=== PATIENT | male | born 1955 | race Caucasian/White ===

== ENCOUNTER 2018-07-22 12:26 | Emergency (ER) | payer BC ==
--- OUTSIDE RECORDS SUMMARY | 2018-07-22 12:30 | XMS REPORT | Clinical Summary ---
:1955 Author Organization [facility] Address [address] [place] [address] Care Team Providers Name Role Phone Jake Schilling MD Primary Care Provider Allergies No Known Allergies Current Medications Prescription Sig. Disp. Refills Start Date End Date Status tadalafil (CIALIS) Take 10 mg by Active 10 MG tablet mouth daily as needed for erectile dysfunction. ascorbic acid, Take 500 mg by Active vitamin C, mouth daily. (VITAMIN C) 500 mg capsule, extended release CR capsule ferrous sulfate Take 325 mg by Active 325 (65 FE) MG mouth daily with tablet breakfast. sodium,potassium,m Take 1 Bottle by 1 Bottle 0 08/17/2017 ag sulfates mouth once for 1 7 (SUPREP BOWEL PREP dose. KIT) 17.5-3.13-1.6 gram recon soln magnesium citrate Take 1 Bottle 296 mL 0 08/17/2017 solution (296 mL total) 7 by mouth once for 1 dose. sodium,potassium,m Take 1 Bottle by 1 Bottle 0 09/12/2017 ag sulfates mouth once for 1 7 (SUPREP BOWEL PREP dose. KIT) 17.5-3.13-1.6 gram recon soln magnesium citrate Take 1 Bottle 296 mL 0 09/12/2017 solution (296 mL total) 7 by mouth once for 1 dose. docusate sodium Take 1 capsule 60 capsule 0 03/11/2018 (COLACE) 100 MG (100 mg total) 8 capsule by mouth 2 (two) times a day for 30 days. ciprofloxacin Begin taking 10 tablet 0 03/17/2018 (CIPRO) 500 MG twice daily, 1 8 tablet day prior to follow-up appointment with your Urologist traMADol (ULTRAM) Take 1 tablet 21 tablet 0 03/11/2018 Discontinued 50 mg tablet (50 mg total) by 8 mouth every 6 (six) hours as needed for moderate pain for up to 21 doses. acetaminophen-code Take 1 tablet by 20 tablet 0 06/24/2018 ine (TYLENOL WITH mouth every 6 8 CODEINE #3) 300-30 (six) hours as mg per tablet needed for moderate pain for up to 20 doses. docusate sodium Take 1 capsule 30 capsule 0 06/24/2018 (COLACE) 100 MG (100 mg total) 8 capsule by mouth 2 (two) times a day for 30 doses. sulfamethoxazole-t Take 1 tablet by 10 tablet 0 06/24/2018 rimethoprim mouth 2 (two) 8 (BACTRIM DS) times a day for 800-160 mg per 5 days. tablet Active Problems Problem Noted Date Hydronephrosis 06/23/2018 Prostate cancer (HCC) 12/09/2017 Encounters Date Type Specialty Care Team Description 07/20/2018 Telephone Urology Isaías Cao MD 06/23/2018 Hospital Encounter General Internal [place], Hydronephrosis, - Medicine Bao Harris MD unspecified 06/24/2018 hydronephrosis type 06/23/2018 Hospital Encounter Radiology Ko HebertphBao pierce MD unspecified hydronephrosis type 06/23/2018 Ancillary Orders Radiology [place] HydrozacharyphBao pierce MD unspecified hydronephrosis type 06/23/2018 Anesthesia Event Radiology Oralia Maza MD 06/16/2018 Transcribe Orders Radiology Ko HebertphrosisBao MD unspecified hydronephrosis type (Primary Dx) 06/15/2018 Hospital Encounter Radiology [place], Right lower quadrant steve Willingham MD 06/15/2018 Ancillary Orders General Surgery Jaclyn, Right lower quadrant steve Willingham MD 06/12/2018 Orders Only General Surgery Mariola Right lower quadrant Radha Jacklyn, pain (Primary Dx) PA 06/08/2018 Office Visit General Surgery [place], Right lower quadrant Bernard Ring abdominal pain (Primary Dx) 03/16/2018 Hospital Encounter Radiology [place], Cancer of prostate Bao Harris MD 03/16/2018 Hospital Encounter Radiology [place], Cancer of prostate Bao Harris MD 03/16/2018 Lab Lab [place], Hypouricemia Bao Harris MD (Primary Dx) 03/16/2018 Lab Lab Bao Hebert MD 03/16/2018 Transcribe Orders Access [place], Cancer of prostate Bao Harris MD (Primary Dx) 03/07/2018 Hospital Encounter General Internal [place], Prostate cancer - Medicine Bao Harris MD 03/13/2018 03/07/2018 Anesthesia Event Urology Audra Ayala CRNA 03/07/2018 Procedure Pass Urology 03/07/2018 Surgery Urology [place], ROBOTIC ASSISTED Bao Harris MD LAPARSCOPIC PROSTATECTOMY, BILATERAL PELVIC LYMPH NODE DISSECTION, BILATERAL URETERAL STENT INSERTION 02/28/2018 Pre-Admit Testing Pre-Admission Testing [place], Preop testing Appointment Bao Harris MD (Primary Dx) 02/06/2018 Hospital Encounter Radiology Bao Hebert MD 02/06/2018 Hospital Encounter Radiology [place], Prostate cancer Bao Harris MD 02/06/2018 Hospital Encounter Radiology [place], Prostate cancer Bao Harris MD 01/16/2018 Procedure Pass Radiology 01/16/2018 Transcribe Orders Access [place], Prostate cancer Bao Harris MD (Primary Dx) 12/27/2017 Telephone Urology Isaías Cao MD 12/22/2017 Telephone Urology Kerry Rehman 12/20/2017 Office Visit Urology Isaías Cao Malignant neoplasm MD Sanjuanita of prostate (Primary Dx) 12/09/2017 Telephone Urology Kerry Rehman 09/14/2017 Documentation Gastroenterology Walter Herring MD 09/13/2017 Lab Lab Walter Herring MD 09/12/2017 Orders Only Gastroenterology Dee Penaloza MA 09/12/2017 Telephone Gastroenterology Walter Herring MD 09/12/2017 Telephone Gastroenterology Walter Herring MD 08/17/2017 Orders Only Gastroenterology Dee Penaloza MA after 07/21/2017 Family History Medical History Relation Name Comments Bladder Cancer Father Heart disease Father Diabetes Maternal Grandfather Relation Name Status Comments Father Maternal Grandfather Social History Tobacco Use Types Packs/Day Years Used Date Never Smoker Smokeless Tobacco: Never Used Alcohol Use Drinks/Week oz/Week Comments Yes Sex Assigned at Date Recorded Not on file Last Filed Vital Signs Vital Sign Reading Time Taken Blood Pressure 127/78 06/24/2018 8:05 AM CDT Pulse 52 06/24/2018 8:05 AM CDT Temperature 36.4 C (97.6 F) 06/24/2018 8:05 AM CDT Respiratory Rate 19 06/24/2018 8:05 AM CDT Oxygen Saturation 97% 06/24/2018 8:05 AM CDT Inhaled Oxygen Concentration - - Weight 63.5 kg (140 lb) 06/23/2018 1:18 PM CDT Height 182.9 cm (6') 06/23/2018 1:18 PM CDT Body Mass Index 18.99 06/23/2018 1:18 PM CDT Plan of Treatment Date Type Specialty Care Team Description 08/04/2018 Office Visit Urology Daniel Sotelo MD [address] [facility] [address] [place] [address] Health Maintenance Due Date Last Done Comments SHINGRIX VACCINE (#1) 2007 ZOSTER VACCINE 2017 INFLUENZA VACCINE 05/17/2018 COLON CANCER SCREENING 08/17/2027 08/17/2017 Implants Implanted Type Area Application Tester Device Expiration Model / Identifier Date Serial / Lot Tip Flxibl Selnt Fibrin Clog-Resistant 45cm Evicel - [id number] Surgical N/A : ETHICON US-EH 10/16/2020 [id number] / Implanted: 03/07/2018 (Quantity not on file) Implants; N/A / Expanders; [id number] Extenders; Surgical Wires Kit Selnt Fibrin Humn Hmsts Surgy 5ml Evicel - [id number] Surgical N/A: ETHICON US-EH 07/16/2019 [id number] / Implanted: Qty: 1 on 03/07/2018 by Bao Hebert MD Implants; N/A / Expanders; Extenders; Surgical Wires Clip Ligtng Hem-O-Farhan Endoscpc Aplr Ply Lg - [id number] Surgical N/A: WECK CLOSURE 10/25/2022 [id number] / Implanted: Qty: 3 on 03/07/2018 by Bao Hebert MD Implants; N/A SYSTEMS / Expanders; Extenders; Surgical Wires Matrix Surgcl Matristem 7x10cm Psm Strl - [id number] Surgical N/A: [employer] 11/16/2019 [id number] / Implanted: Qty: 1 on 03/07/2018 by Bao Hebert MD Implants; N/A / Expanders; Extenders; Surgical Wires Clip Ligtng Hem-O-Farhan Endoscpc Aplr [facility] Lg - [id number] Surgical N/A: WECK CLOSURE 10/25/2022 [id number] / Implanted: Qty: 1 on 03/07/2018 by Bao Hebert MD Implants; N/A SYSTEMS / Expanders; Extenders; Surgical Wires Needle Yueh Centsis 19ga Str 5fr 7cm Cath Strl - [id number] Surgical N/A: ARIA [id number] / Implanted: 06/23/2018 (Quantity not on file) Implants; N/A INTERVENTIONAL / Expanders; RADIOLOGY Extenders; Surgical Wires Stent Uretl S-Flx Kwrt Rtr-Inj Mltlen 6fr 22-32cm - [id number] Urological N/A : CustomMade UROLOGICAL 06/09/2020 [id number] / Implanted: 03/07/2018 (Quantity not on file) Implants or N/A / Sets [id number] Stent Uretl S-Flx Kwrt Rtr-Inj Mltlen 6fr 22-32cm - [id number] Urological N/A : CustomMade UROLOGICAL 06/09/2020 [id number] / Implanted: 03/07/2018 (Quantity not on file) Implants or N/A / Sets [id number] Procedures Procedure Name Priority Date/Time Associated Diagnosis Comments CBC HEMOGRAM STAT 06/24/2018 7:31 Results for this AM CDT procedure are in the results section. ZZESTIMATED GFR STAT 06/24/2018 6:13 Results for this AM CDT procedure are in the results section. BASIC METABOLIC STAT 06/24/2018 6:13 Results for this PANEL AM CDT procedure are in the results section. IR VISCERAL DRAIN Routine 06/23/2018 4:11 Hydronephrosis, Results for this PM CDT unspecified procedure are in hydronephrosis type the results section. IR RIGHT NEPHROSTOMY Routine 06/23/2018 4:11 Hydronephrosis, Results for this INITIAL PLACEMENT PM CDT unspecified procedure are in hydronephrosis type the results section. CREATININE LEVEL, Routine 06/23/2018 2:58 Results for this MISC FLUID PM CDT procedure are in the results section. CT UROGRAM Routine 06/23/2018 11:34 Hydronephrosis, Results for this AM CDT unspecified procedure are in hydronephrosis type the results section. CT ABDOMEN W WO Routine 06/15/2018 3:14 Right lower quadrant Results for this CONTRAST PELVIS W WO PM CDT pain procedure are in CONTRAST the results section. ESTIMATED GFR Routine 06/15/2018 2:40 Results for this PM CDT procedure are in the results section. POC CREATININE Routine 06/15/2018 2:40 Results for this PM CDT procedure are in the results section. CT ABDOMEN PELVIS W Routine 03/16/2018 3:34 Cancer of prostate Results for this CONTRAST PM CDT procedure are in the results section. CREATININE LEVEL, STAT 03/16/2018 11:47 Hypouricemia Results for this MISC FLUID AM CDT procedure are in the results section. CBC HEMOGRAM Routine 03/13/2018 5:00 Results for this AM CDT procedure are in the results section. ZZESTIMATED GFR Routine 03/13/2018 4:00 Results for this AM CDT procedure are in the results section. BASIC METABOLIC Routine 03/13/2018 4:00 Results for this PANEL AM CDT procedure are in the results section. ZZESTIMATED GFR Routine 03/12/2018 4:21 Results for this AM CDT procedure are in the results section. CBC HEMOGRAM Routine 03/12/2018 4:21 Results for this AM CDT procedure are in the results section. BASIC METABOLIC Routine 03/12/2018 4:21 Results for this PANEL AM CDT procedure are in the results section. CREATININE LEVEL, Routine 03/11/2018 6:30 Results for this MISC FLUID PM CDT procedure are in the results section. CBC HEMOGRAM Routine 03/11/2018 4:30 Results for this AM CDT procedure are in the results section. ZZESTIMATED GFR Routine 03/11/2018 4:00 Results for this AM CDT procedure are in the results section. BASIC METABOLIC Routine 03/11/2018 4:00 Results for this PANEL AM CDT procedure are in the results section. CT ABDOMEN PELVIS W STAT 03/10/2018 11:22 Results for this WO CONTRAST AM CDT procedure are in the results section. CBC HEMOGRAM Routine 03/10/2018 4:15 Results for this AM CDT procedure are in the results section. ZZESTIMATED GFR Routine 03/10/2018 4:00 Results for this AM CDT procedure are in the results section. BASIC METABOLIC Routine 03/10/2018 4:00 Results for this PANEL AM CDT procedure are in the results section. ZZESTIMATED GFR Routine 03/09/2018 12:00 Results for this PM CDT procedure are in the results section. BASIC METABOLIC Routine 03/09/2018 12:00 Results for this PANEL PM CDT procedure are in the results section. CREATININE LEVEL, STAT 03/09/2018 10:45 Results for this MISC FLUID AM CDT procedure are in the results section. XR ABDOMEN 1 VW STAT 03/09/2018 8:53 Results for this AM CDT procedure are in the results section. CBC HEMOGRAM Routine 03/09/2018 4:15 Results for this AM CDT procedure are in the results section. ZZESTIMATED GFR Routine 03/09/2018 4:00 Results for this AM CDT procedure are in the results section. BASIC METABOLIC Routine 03/09/2018 4:00 Results for this PANEL AM CDT procedure are in the results section. ZZESTIMATED GFR Routine 03/08/2018 4:00 Results for this AM CDT procedure are in the results section. BASIC METABOLIC Routine 03/08/2018 4:00 Results for this PANEL AM CDT procedure are in the results section. HEMOGLOBIN & Routine 03/08/2018 4:00 Results for this HEMATOCRIT AM CDT procedure are in the results section. SURGICAL PATHOLOGY Routine 03/07/2018 1:59 Results for this REQUEST PM CDT procedure are in the results section. SURGICAL PATHOLOGY Routine 03/07/2018 1:59 Results for this REQUEST PM CDT procedure are in the results section. ZZESTIMATED GFR Routine 03/07/2018 11:50 Results for this AM CDT procedure are in the results section. BASIC METABOLIC Routine 03/07/2018 11:50 Results for this PANEL AM CDT procedure are in the results section. HC COMPLETE BLD Routine 03/07/2018 11:50 Results for this COUNT W/AUTO DIFF AM CDT procedure are in the results section. [place] AN ELECTIVE MASK Routine 03/07/2018 8:26 AIRWAY AM CDT Procedure Note - Audra Ayala CRNA - 03/07/2018 8:26 AM CDT Airway Date/Time: 03/07/2018 7:32 AM Performed by: AUDRA AYALA Authorized by: FOUZIA KITCHEN Location: OR Urgency: Elective Difficult Airway: No Resident/COLLECTIONS SPECIALIST/AA: AUDRA AYALA Preoxygenated with 100% O2: Yes C-spine Precautions Maintained Throughout: Yes Mask Ventilation: Easy mask Final Airway Type: Mask Number of Attempts at Approach: 1 AUTRAUMATIC LUBE & TAPE BOTH EYES OGT PROSTATECTOMY, LAPAROSCOPIC, 03/07/2018 7:30 AM CDT Prostate cancer ROBOT-ASSISTED Special Needs DAVINCI, AIRSEAL ECG PRE/POST OP Routine 02/28/2018 1:32 PM Preop testing Results for this CDT procedure are in the results section. URINE CULTURE Routine 02/28/2018 1:25 PM Results for this CDT procedure are in the results section. ZZESTIMATED GFR Routine 02/28/2018 1:20 PM Results for this CDT procedure are in the results section. BASIC METABOLIC PANEL Routine 02/28/2018 1:20 PM Preop testing Results for this CDT procedure are in the results section. CBC HEMOGRAM Routine 02/28/2018 1:20 PM Preop testing Results for this CDT procedure are in the results section. URINALYSIS SCREEN AND Routine 02/28/2018 1:20 PM Preop testing Results for this MICROSCOPY, WITH CDT procedure are in REFLEX TO CULTURE the results section. TYPE AND SCREEN Routine 02/28/2018 1:20 PM Preop testing Results for this CDT procedure are in the results section. NM BONE SCAN WHOLE Routine 02/06/2018 12:11 PM Prostate cancer Results for this BODY CDT procedure are in the results section. MRI PROSTATE WWO Routine 02/06/2018 10:56 AM Prostate cancer Results for this CONTRAST CDT procedure are in the results section. ESTIMATED GFR Routine 02/06/2018 9:48 AM Results for this CDT procedure are in the results section. POC CREATININE Routine 02/06/2018 9:48 AM Results for this CDT procedure are in the results section. SURGICAL PATHOLOGY Routine 09/13/2017 10:22 AM Results for this REQUEST HOME BASED ASSISTANT procedure are in the results section. after 07/21/2017 Results CBC hemogram (06/24/2018 7:31 AM)Only the most recent of7 resultswithin the time period is included. WBC 8.10 4.50 - 11.00 k/uL [facility] DEPARTMENT OF PATHOLOGY AND GENOMIC MEDICINE RBC 4.01 (L) 4.40 - 6.00 m/uL [facility] DEPARTMENT OF PATHOLOGY AND GENOMIC MEDICINE HGB 11.4 (L) 14.0 - 18.0 g/dL [facility] DEPARTMENT OF PATHOLOGY AND GENOMIC MEDICINE HCT 34.8 (L) 41.0 - 51.0 % [facility] DEPARTMENT OF PATHOLOGY AND GENOMIC MEDICINE MCV 86.8 82.0 - 100.[address] [facility] DEPARTMENT OF PATHOLOGY AND GENOMIC MEDICINE MCH 28.4 27.0 - 34.[address] [facility] DEPARTMENT OF PATHOLOGY AND GENOMIC MEDICINE MCHC 32.8 31.0 - 37.0 g/dL [facility] DEPARTMENT OF PATHOLOGY AND GENOMIC MEDICINE RDW - SD 45.7 37.0 - 55.[address] [facility] DEPARTMENT OF PATHOLOGY AND GENOMIC MEDICINE MPV 10.0 8.8 - 13.[address] [facility] DEPARTMENT OF PATHOLOGY AND GENOMIC MEDICINE Platelet count 237 150 - 400 k/uL [facility] DEPARTMENT OF PATHOLOGY AND GENOMIC MEDICINE Nucleated RBC 0.00 /[address] [facility] DEPARTMENT OF PATHOLOGY AND GENOMIC MEDICINE Specimen Blood Performing Organization Address City/State/Zipcode Phone Number [facility] DEPARTMENT OF PATHOLOGY AND [address] [place] [address] [facility] Estimated GFR (06/24/2018 6:13 AM)Only the most recent of10 resultswithin the time period is included. GFR Non Af Amer 76 mL/min/1.[address] [facility] DEPARTMENT OF PATHOLOGY AND GENOMIC MEDICINE GFR Af Amer >90 mL/min/1.[address] [facility] DEPARTMENT OF Comment: PATHOLOGY AND GENOMIC Chronic kidney disease: <60 mL/min/1.73m2 MEDICINE Kidney failure: <15 mL/min/1.73m2 The estimated GFR is calculated from the IDMS-traceable Modification of Diet in Renal Disease Equation. The accuracy of the calculation is poor when the creatinine is normal. Calculated values >90 mL/min/1.73m2 are not reported. This equation has not been validated in children (<18 years), women, the elderly (>70 years), or ethnic groups other than Caucasians and Americans. Specimen Plasma specimen Performing Organization Address City/[facility] Phone Number [facility] DEPARTMENT OF PATHOLOGY AND [address] [place] [phone] [facility] Basic metabolic panel (06/24/2018 6:13 AM)Only the most recent of10 resultswithin the time period is included. Sodium 143 135 - 148 mEq/L [facility] DEPARTMENT OF PATHOLOGY AND GENOMIC MEDICINE Potassium 4.2 3.5 - 5.0 mEq/L [facility] DEPARTMENT OF PATHOLOGY AND GENOMIC MEDICINE Chloride 106 98 - 112 mEq/L [facility] DEPARTMENT OF PATHOLOGY AND GENOMIC MEDICINE CO2 25 24 - 31 mEq/L [facility] DEPARTMENT OF PATHOLOGY AND GENOMIC MEDICINE Anion gap 12@ANIO 7 - 15 mEq/L [facility] DEPARTMENT OF PATHOLOGY AND GENOMIC MEDICINE BUN 14 8 - 23 mg/dL [facility] DEPARTMENT OF PATHOLOGY AND GENOMIC MEDICINE Creatinine 1.0 0.7 - 1.2 mg/dL [facility] DEPARTMENT OF PATHOLOGY AND GENOMIC MEDICINE Glucose 93 65 - 99 mg/dL [facility] DEPARTMENT OF PATHOLOGY AND GENOMIC MEDICINE Calcium 8.6 (L) 8.8 - 10.2 mg/dL [facility] DEPARTMENT OF PATHOLOGY AND GENOMIC MEDICINE Specimen Plasma specimen Performing Organization Address City/[facility] Phone Number [facility] DEPARTMENT OF PATHOLOGY AND [address] [place] [phone] [facility] IR Nephrostomy Insertion Right (06/23/2018 4:11 PM) Narrative Performed At Performing Radiologist NAJMA Umanzor MD Assistants None Anesthesia/Sedation: Level of anesthesia: General Anesthesia Medications used: per anesthesia and 1% lidocaine Anesthesia administration: Anesthesiologist/COLLECTIONS SPECIALIST. 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 Prophylactic antibiotics: None Preparation: The right lower quadrant of the abdomen and right flank were prepared and draped using all elements of maximal sterile barrier technique including sterile gloves, sterile gown, catheter, mask, large sterile sheet, sterile ultrasound probe cover, hand hygiene and cutaneous antisepsis using chlorhexidine. A limited preprocedure ultrasound of the right lower quadrant of the abdomen was obtained. Under ultrasound guidance, a 5 German Yueh catheter was advanced into a loculated fluid collection within the right lower quadrant of the abdomen. Clear yellow fluid was aspirated immediately from the fluid collection. Contrast was injected confirming positioning within the collection. The Yueh catheter was then removed over a 0.035 inch Amplatz wire. The subcutaneous tissues were then appropriately dilated to accommodate an 8 German pigtail drainage catheter. The catheter was secured to the subcutaneous tissues and then placed to gravity drainage and samples of fluid were sent for creatinine. The patient was then placed in the prone position, and a limited preprocedure ultrasound of the right kidney was performed. The superior pole collecting system was noted to be dilated. Under ultrasound guidance, the superior pole collecting system was accessed with a 22-gauge Chiba needle. The needle was then exchanged over 0.018 inch wire for a 3 German sheath which was then injected with contrast confirming positioning within the superior pole collecting system. A 6 German Zaira catheter was then advanced over the 0.018 inch wire, and the distal ureter was accessed with a 5 German Kumpe catheter and 0.035 inch Glidewire. A focused anterior nephrostogram was then performed and an attempt for made to cross the defect within the distal portion of the right ureter draining the superior pole collecting system, however, this was unsuccessful. The subcutaneous kidneys tissues were then appropriately dilated over 0.035 inch J-wire to accommodate an 8 German Parnell-Whittaker nephrostomy tube which was positioned within the superior pole collecting system. The catheter was then secured subcutaneous tissues and placed to gravity drainage. The patient tolerated the procedure well. Radiation Dose: 11 mGy Complications None Specimens Removed None Estimated Blood Loss Less than 2 mL Blood/Blood Products Administered None Findings: 1.Initial ultrasound of the right lower quadrant of the abdomen demonstrates a complex fluid collection with thin internal septations. This was accessed with a UA catheter. 2.Injection of contrast within this collection demonstrates no evidence of a contrast opacification of the distal right ureter or bladder. 3.Final spot radiograph of the pelvis demonstrates positioning of the 8 German pigtail drainage catheter to overlie the right-sided the pelvis. 4.Initial ultrasound of the right kidney demonstrates dilatation of the superior pole collecting system. The inferior pole collecting system is not dilated. 5.Multiple spot radiographs obtained during access of the right kidney demonstrate a 22-gauge Chiba needle coursing between the 11th and 12th ribs into a dilated right superior pole collecting system. The lower pole collecting system is visible, and contains excreted contrast from a recent CT. The collecting system appears nondilated. 6.Antegrade nephrostogram performed through the superior pole collecting system within the right kidney demonstrates moderate hydronephrosis. The right ureter is patent, and terminates over the inferior margin of the pelvis. Contrast spills into the peritoneal cavity. No definite connection is seen between the distal right ureter and the bladder. 7.Final spot radiograph demonstrates positioning of a Parnell-Whittaker pigtail nephrostomy tube to be within a calyx within the superior pole collecting system of the right kidney. Again, the lower pole collecting system of the right kidney is opacified with excreted contrast and appears nondilated. Impression: 1.Duplicated right-sided collecting system with discontinuity of the ureter draining the superior pole moiety along the inferior margin of the pelvis. Contrast is noted to spill directly into the peritoneal cavity correlating with findings on recent CT. An 8 German Parnell-Whittaker pigtail nephrostomy tube was placed within the superior pole collecting system. 2.Successful placement of an 8 German right lower quadrant abdominal drain within a complex fluid collection likely representing a urinoma. [facility]-[id number] Procedure Note [facility], Radiology Results Incoming - 06/23/2018 5:39 PM CDT Performing Radiologist Sharan Umanzor MD Assistants None Anesthesia/Sedation: Level of anesthesia: General Anesthesia Medications used: per anesthesia and 1% lidocaine Anesthesia administration: Anesthesiologist/COLLECTIONS SPECIALIST. 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 Prophylactic antibiotics: None Preparation: The right lower quadrant of the abdomen and right flank were prepared and draped using all elements of maximal sterile barrier technique including sterile gloves, sterile gown, catheter, mask, large sterile sheet, sterile ultrasound probe cover, hand hygiene and cutaneous antisepsis using chlorhexidine. A limited preprocedure ultrasound of the right lower quadrant of the abdomen was obtained. Under ultrasound guidance, a 5 German Yueh catheter was advanced into a loculated fluid collection within the right lower quadrant of the abdomen. Clear yellow fluid was aspirated immediately from the fluid collection. Contrast was injected confirming positioning within the collection. The Yueh catheter was then removed over a 0.035 inch Amplatz wire. The subcutaneous tissues were then appropriately dilated to accommodate an 8 German pigtail drainage catheter. The catheter was secured to the subcutaneous tissues and then placed to gravity drainage and samples of fluid were sent for creatinine. The patient was then placed in the prone position, and a limited preprocedure ultrasound of the right kidney was performed. The superior pole collecting system was noted to be dilated. Under ultrasound guidance, the superior pole collecting system was accessed with a 22-gauge Chiba needle. The needle was then exchanged over 0.018 inch wire for a 3 German sheath which was then injected with contrast confirming positioning within the superior pole collecting system. A 6 German Zaira catheter was then advanced over the 0.018 inch wire, and the distal ureter was accessed with a 5 German Kumpe catheter and 0.035 inch Glidewire. A focused anterior nephrostogram was then performed and an attempt for made to cross the defect within the distal portion of the right ureter draining the superior pole collecting system, however, this was unsuccessful. The subcutaneous kidneys tissues were then appropriately dilated over 0.035 inch J-wire to accommodate an 8 German Parnell-Whittaker nephrostomy tube which was positioned within the superior pole collecting system. The catheter was then secured subcutaneous tissues and placed to gravity drainage. The patient tolerated the procedure well. Radiation Dose: 11 mGy Complications None Specimens Removed None Estimated Blood Loss Less than 2 mL Blood/Blood Products Administered None Findings: 1. Initial ultrasound of the right lower quadrant of the abdomen demonstrates a complex fluid collection with thin internal septations. This was accessed with a UA catheter. 2. Injection of contrast within this collection demonstrates no evidence of a contrast opacification of the distal right ureter or bladder. 3. Final spot radiograph of the pelvis demonstrates positioning of the 8 German pigtail drainage catheter to overlie the right-sided the pelvis. 4. Initial ultrasound of the right kidney demonstrates dilatation of the superior pole collecting system. The inferior pole collecting system is not dilated. 5. Multiple spot radiographs obtained during access of the right kidney demonstrate a 22-gauge Chiba needle coursing between the 11th and 12th ribs into a dilated right superior pole collecting system. The lower pole collecting system is visible, and contains excreted contrast from a recent CT. The collecting system appears nondilated. 6. Antegrade nephrostogram performed through the superior pole collecting system within the right kidney demonstrates moderate hydronephrosis. The right ureter is patent, and terminates over the inferior margin of the pelvis. Contrast spills into the peritoneal cavity. No definite connection is seen between the distal right ureter and the bladder. 7. Final spot radiograph demonstrates positioning of a Parnell-Whittaker pigtail nephrostomy tube to be within a calyx within the superior pole collecting system of the right kidney. Again, the lower pole collecting system of the right kidney is opacified with excreted contrast and appears nondilated. Impression: 1. Duplicated right-sided collecting system with discontinuity of the ureter draining the superior pole moiety along the inferior margin of the pelvis. Contrast is noted to spill directly into the peritoneal cavity correlating with findings on recent CT. An 8 German Parnell-Whittaker pigtail nephrostomy tube was placed within the superior pole collecting system. 2. Successful placement of an 8 German right lower quadrant abdominal drain within a complex fluid collection likely representing a urinoma. [id number] Performing Organization Address City/State/Zipcode Phone Number [facility] [address] [place] [address] IR Visceral Drain (06/23/2018 4:11 PM) Narrative Performed At Performing Radiologist [facility] Umanzor MD Assistants None Anesthesia/Sedation: Level of anesthesia: General Anesthesia Medications used: per anesthesia and 1% lidocaine Anesthesia administration: Anesthesiologist/COLLECTIONS SPECIALIST. 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 Prophylactic antibiotics: None Preparation: The right lower quadrant of the abdomen and right flank were prepared and draped using all elements of maximal sterile barrier technique including sterile gloves, sterile gown, catheter, mask, large sterile sheet, sterile ultrasound probe cover, hand hygiene and cutaneous antisepsis using chlorhexidine. A limited preprocedure ultrasound of the right lower quadrant of the abdomen was obtained. Under ultrasound guidance, a 5 German Yueh catheter was advanced into a loculated fluid collection within the right lower quadrant of the abdomen. Clear yellow fluid was aspirated immediately from the fluid collection. Contrast was injected confirming positioning within the collection. The Yueh catheter was then removed over a 0.035 inch Amplatz wire. The subcutaneous tissues were then appropriately dilated to accommodate an 8 German pigtail drainage catheter. The catheter was secured to the subcutaneous tissues and then placed to gravity drainage and samples of fluid were sent for creatinine. The patient was then placed in the prone position, and a limited preprocedure ultrasound of the right kidney was performed. The superior pole collecting system was noted to be dilated. Under ultrasound guidance, the superior pole collecting system was accessed with a 22-gauge Chiba needle. The needle was then exchanged over 0.018 inch wire for a 3 German sheath which was then injected with contrast confirming positioning within the superior pole collecting system. A 6 German Zaira catheter was then advanced over the 0.018 inch wire, and the distal ureter was accessed with a 5 German Kumpe catheter and 0.035 inch Glidewire. A focused anterior nephrostogram was then performed and an attempt for made to cross the defect within the distal portion of the right ureter draining the superior pole collecting system, however, this was unsuccessful. The subcutaneous kidneys tissues were then appropriately dilated over 0.035 inch J-wire to accommodate an 8 German Parnell-Whittaker nephrostomy tube which was positioned within the superior pole collecting system. The catheter was then secured subcutaneous tissues and placed to gravity drainage. The patient tolerated the procedure well. Radiation Dose: 11 mGy Complications None Specimens Removed None Estimated Blood Loss Less than 2 mL Blood/Blood Products Administered None Findings: 1.Initial ultrasound of the right lower quadrant of the abdomen demonstrates a complex fluid collection with thin internal septations. This was accessed with a UA catheter. 2.Injection of contrast within this collection demonstrates no evidence of a contrast opacification of the distal right ureter or bladder. 3.Final spot radiograph of the pelvis demonstrates positioning of the 8 German pigtail drainage catheter to overlie the right-sided the pelvis. 4.Initial ultrasound of the right kidney demonstrates dilatation of the superior pole collecting system. The inferior pole collecting system is not dilated. 5.Multiple spot radiographs obtained during access of the right kidney demonstrate a 22-gauge Chiba needle coursing between the 11th and 12th ribs into a dilated right superior pole collecting system. The lower pole collecting system is visible, and contains excreted contrast from a recent CT. The collecting system appears nondilated. 6.Antegrade nephrostogram performed through the superior pole collecting system within the right kidney demonstrates moderate hydronephrosis. The right ureter is patent, and terminates over the inferior margin of the pelvis. Contrast spills into the peritoneal cavity. No definite connection is seen between the distal right ureter and the bladder. 7.Final spot radiograph demonstrates positioning of a Parnell-Whittaker pigtail nephrostomy tube to be within a calyx within the superior pole collecting system of the right kidney. Again, the lower pole collecting system of the right kidney is opacified with excreted contrast and appears nondilated. Impression: 1.Duplicated right-sided collecting system with discontinuity of the ureter draining the superior pole moiety along the inferior margin of the pelvis. Contrast is noted to spill directly into the peritoneal cavity correlating with findings on recent CT. An 8 German Parnell-Whittaker pigtail nephrostomy tube was placed within the superior pole collecting system. 2.Successful placement of an 8 German right lower quadrant abdominal drain within a complex fluid collection likely representing a urinoma. [facility]-[id number] Procedure Note [facility], Radiology Results Incoming - 06/23/2018 5:39 PM CDT Performing Radiologist Sharan Umanzor MD Assistants None Anesthesia/Sedation: Level of anesthesia: General Anesthesia Medications used: per anesthesia and 1% lidocaine Anesthesia administration: Anesthesiologist/COLLECTIONS SPECIALIST. 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 Prophylactic antibiotics: None Preparation: The right lower quadrant of the abdomen and right flank were prepared and draped using all elements of maximal sterile barrier technique including sterile gloves, sterile gown, catheter, mask, large sterile sheet, sterile ultrasound probe cover, hand hygiene and cutaneous antisepsis using chlorhexidine. A limited preprocedure ultrasound of the right lower quadrant of the abdomen was obtained. Under ultrasound guidance, a 5 German Yueh catheter was advanced into a loculated fluid collection within the right lower quadrant of the abdomen. Clear yellow fluid was aspirated immediately from the fluid collection. Contrast was injected confirming positioning within the collection. The Yueh catheter was then removed over a 0.035 inch Amplatz wire. The subcutaneous tissues were then appropriately dilated to accommodate an 8 German pigtail drainage catheter. The catheter was secured to the subcutaneous tissues and then placed to gravity drainage and samples of fluid were sent for creatinine. The patient was then placed in the prone position, and a limited preprocedure ultrasound of the right kidney was performed. The superior pole collecting system was noted to be dilated. Under ultrasound guidance, the superior pole collecting system was accessed with a 22-gauge Chiba needle. The needle was then exchanged over 0.018 inch wire for a 3 German sheath which was then injected with contrast confirming positioning within the superior pole collecting system. A 6 German Zaira catheter was then advanced over the 0.018 inch wire, and the distal ureter was accessed with a 5 German Kumpe catheter and 0.035 inch Glidewire. A focused anterior nephrostogram was then performed and an attempt for made to cross the defect within the distal portion of the right ureter draining the superior pole collecting system, however, this was unsuccessful. The subcutaneous kidneys tissues were then appropriately dilated over 0.035 inch J-wire to accommodate an 8 German Parnell-Whittaker nephrostomy tube which was positioned within the superior pole collecting system. The catheter was then secured subcutaneous tissues and placed to gravity drainage. The patient tolerated the procedure well. Radiation Dose: 11 mGy Complications None Specimens Removed None Estimated Blood Loss Less than 2 mL Blood/Blood Products Administered None Findings: 1. Initial ultrasound of the right lower quadrant of the abdomen demonstrates a complex fluid collection with thin internal septations. This was accessed with a UA catheter. 2. Injection of contrast within this collection demonstrates no evidence of a contrast opacification of the distal right ureter or bladder. 3. Final spot radiograph of the pelvis demonstrates positioning of the 8 German pigtail drainage catheter to overlie the right-sided the pelvis. 4. Initial ultrasound of the right kidney demonstrates dilatation of the superior pole collecting system. The inferior pole collecting system is not dilated. 5. Multiple spot radiographs obtained during access of the right kidney demonstrate a 22-gauge Chiba needle coursing between the 11th and 12th ribs into a dilated right superior pole collecting system. The lower pole collecting system is visible, and contains excreted contrast from a recent CT. The collecting system appears nondilated. 6. Antegrade nephrostogram performed through the superior pole collecting system within the right kidney demonstrates moderate hydronephrosis. The right ureter is patent, and terminates over the inferior margin of the pelvis. Contrast spills into the peritoneal cavity. No definite connection is seen between the distal right ureter and the bladder. 7. Final spot radiograph demonstrates positioning of a Parnell-Whittaker pigtail nephrostomy tube to be within a calyx within the superior pole collecting system of the right kidney. Again, the lower pole collecting system of the right kidney is opacified with excreted contrast and appears nondilated. Impression: 1. Duplicated right-sided collecting system with discontinuity of the ureter draining the superior pole moiety along the inferior margin of the pelvis. Contrast is noted to spill directly into the peritoneal cavity correlating with findings on recent CT. An 8 German Parnell-Whittaker pigtail nephrostomy tube was placed within the superior pole collecting system. 2. Successful placement of an 8 German right lower quadrant abdominal drain within a complex fluid collection likely representing a urinoma. [id number] Performing Organization Address City/State/Zipcode Phone Number [facility] [address] [place] [address] Creatinine level, misc fluid (06/23/2018 2:58 PM)Only the most recent of4 resultswithin the time period is included. Fluid type RLQ PELVIC FLUID [facility] DEPARTMENT OF PATHOLOGY AND GENOMIC MEDICINE Creatinine, fluid 4.1 mg/dL [facility] DEPARTMENT OF PATHOLOGY Comment: AND GENOMIC MEDICINE Analysis performed on Lois 8000 analyzer. This is not an approved methodology for this specimen type;accuracy and clinical significance uncertain. Specimen Fluid Narrative Performed At [facility] PELVIC FLUID [facility] DEPARTMENT OF PATHOLOGY AND GENOMIC MEDICINE Performing Organization Address City/[facility] Phone Number [facility] DEPARTMENT OF PATHOLOGY AND [address] [place] [id number] Urogram (06/23/2018 11:34 AM) Narrative Performed At EXAMINATION:CT UROGRAM [facility] CLINICAL HISTORY:N13.30 Unspecified hydronephrosis, N13.30 TECHNIQUE:CT of the abdomen and pelvis was performed without contrast utilizing renal stone protocol. Subsequently, postcontrast CT of the abdomen and pelvis was obtained with multiphase renal mass and CT urogram protocol. Sagittal and coronal computerized reformatted images were also obtained. Scan was performed using radiation dose reduction techniques. COMPARISON:June 15, 2018 FINDINGS: Right lower quadrant/pelvic fluid collection remains unchanged measuring approximately a centimeters in diameter. This collection extends caudally to the right pelvis abutting the distal ureter and slightly deforming the bladder near the ureterovesical junction. Redemonstration of duplicated right collecting system with stable mild hydroureteronephrosis of the upper moiety with associated delayed excretion. Distal ureter segment is difficult to visualize, however the duplication appears to be complete with separate ureters to the bladder. The upper moiety ureter is unopacified due to delayed excretion. The lower moiety and the left kidney demonstrate no hydronephrosis. No stones. Status post prostatectomy. Stable 6 mm hypodensity in the right lobe of the liver and couple of less than 5 mm foci in the left lobe likely cysts but too small to fully characterize. Unremarkable gallbladder, pancreas, and spleen. IMPRESSION: Stable right lower quadrant/pelvic fluid collection. Duplicated right collecting system with stable mild upper moiety hydroureteronephrosis. [facility]-[id number] Procedure Note Interface, Radiology Results Incoming - 06/23/2018 12:32 PM CDT EXAMINATION: CT UROGRAM CLINICAL HISTORY: N13.30 Unspecified hydronephrosis, N13.30 TECHNIQUE: CT of the abdomen and pelvis was performed without contrast utilizing renal stone protocol. Subsequently, postcontrast CT of the abdomen and pelvis was obtained with multiphase renal mass and CT urogram protocol. Sagittal and coronal computerized reformatted images were also obtained. Scan was performed using radiation dose reduction techniques. COMPARISON: June 15, 2018 FINDINGS: Right lower quadrant/pelvic fluid collection remains unchanged measuring approximately a centimeters in diameter. This collection extends caudally to the right pelvis abutting the distal ureter and slightly deforming the bladder near the ureterovesical junction. Redemonstration of duplicated right collecting system with stable mild hydroureteronephrosis of the upper moiety with associated delayed excretion. Distal ureter segment is difficult to visualize, however the duplication appears to be complete with separate ureters to the bladder. The upper moiety ureter is unopacified due to delayed excretion. The lower moiety and the left kidney demonstrate no hydronephrosis. No stones. Status post prostatectomy. Stable 6 mm hypodensity in the right lobe of the liver and couple of less than 5 mm foci in the left lobe likely cysts but too small to fully characterize. Unremarkable gallbladder, pancreas, and spleen. IMPRESSION: Stable right lower quadrant/pelvic fluid collection. Duplicated right collecting system with stable mild upper moiety hydroureteronephrosis. [facility]-[id number] Performing Organization Address City/State/Zipcode Phone Number [facility] [address] [place] [address] CT Abdomen W Wo Contrast Pelvis W Wo Contrast (06/15/2018 3:14 PM) Narrative Performed At EXAMINATION:CT ABDOMEN W WO [facility]:Right lower quadrant pain TECHNIQUE:Multiple axial images of the abdomen and pelvis were obtained without intravenous administration of iodinated contrast. Sagittal and coronal computerized reformatted images were also obtained. CT images were obtained using low-dose technique with automated exposure control. The lack of intravenous contrast reduces the sensitivity of detecting solid organ disease. COMPARISON:CT from 03/16/2018 IMPRESSION: 1.Status post prostatectomy. Previously seen ureteral stents and surgical drain have been removed. [ 2.There is a 8.6 x 7.1 x 10 cm fluid collection in the anterior right pelvis extending inferiorly towards the base of the bladder. 3.Right kidney has duplicated collecting system and ureter. The upper pole moiety is slightly atrophic with mild to moderate hydronephrosis and demonstrates delayed nephrogram. The right upper pole moiety ureter extends into the right pelvis and appears to be contiguous with the right pelvic fluid collection (series 3 image 129). 4.Lower pole of the right kidney and left kidney demonstrate normal symmetric enhancement. Minimal hydronephrosis of the right lower pole moiety present. The bladder is distended measuring 5.3 x 5.8 x 11.5 cm. 5.There are several subcentimeter cysts and too small to characterize hypodense lesions in the liver. Spleen, pancreas, gallbladder, and adrenal glands are within normal limits. 6.There is no abdominal or pelvic adenopathy. Small mesenteric and retroperitoneal lymph nodes are within normal limits and unchanged. There is no ascites. Aorta is normal in caliber with mild atherosclerotic calcification. 7.There are few diverticula in the colon. There is no evidence of diverticulitis. There is no intestinal obstruction. 8.Visualized osseous structures are intact. Lung bases are clear. Summary: Right pelvic fluid collection, likely reflecting contained urine leak from the distal duplicated right ureter draining the upper pole right kidney as detailed above. Findings called to Dr. Hebert at 4:[address] [facility]-[id number] Procedure Note [facility], Radiology Results Incoming - 06/15/2018 5:10 PM CDT EXAMINATION: CT ABDOMEN W WO CONTRAST PELVIS W WO CONTRAST CLINICAL HISTORY: Right lower quadrant pain TECHNIQUE: Multiple axial images of the abdomen and pelvis were obtained without intravenous administration of iodinated contrast. Sagittal and coronal computerized reformatted images were also obtained. CT images were obtained using low-dose technique with automated exposure control. The lack of intravenous contrast reduces the sensitivity of detecting solid organ disease. COMPARISON: CT from 03/16/2018 IMPRESSION: 1. Status post prostatectomy. Previously seen ureteral stents and surgical drain have been removed. [ 2. There is a 8.6 x 7.1 x 10 cm fluid collection in the anterior right pelvis extending inferiorly towards the base of the bladder. 3. Right kidney has duplicated collecting system and ureter. The upper pole moiety is slightly atrophic with mild to moderate hydronephrosis and demonstrates delayed nephrogram. The right upper pole moiety ureter extends into the right pelvis and appears to be contiguous with the right pelvic fluid collection (series 3 image 129). 4. Lower pole of the right kidney and left kidney demonstrate normal symmetric enhancement. Minimal hydronephrosis of the right lower pole moiety present. The bladder is distended measuring 5.3 x 5.8 x 11.5 cm. 5. There are several subcentimeter cysts and too small to characterize hypodense lesions in the liver. Spleen, pancreas, gallbladder, and adrenal glands are within normal limits. 6. There is no abdominal or pelvic adenopathy. Small mesenteric and retroperitoneal lymph nodes are within normal limits and unchanged. There is no ascites. Aorta is normal in caliber with mild atherosclerotic calcification. 7. There are few diverticula in the colon. There is no evidence of diverticulitis. There is no intestinal obstruction. 8. Visualized osseous structures are intact. Lung bases are clear. Summary: Right pelvic fluid collection, likely reflecting contained urine leak from the distal duplicated right ureter draining the upper pole right kidney as detailed above. Findings called to Dr. Hebert at 4:[address] [facility]-[id number] Performing Organization Address City/State/Zipcode Phone Number [facility] [address] [place] [address] Estimated GFR (06/15/2018 2:40 PM)Only the most recent of2 resultswithin the time period is included. GFR Non Af Amer 86 mL/min/1.[address] [facility] DEPARTMENT OF PATHOLOGY AND GENOMIC MEDICINE GFR Af Amer >90 mL/min/1.[address] [facility] DEPARTMENT OF Comment: PATHOLOGY AND GENOMIC Chronic kidney disease: <60 mL/min/1.73m2 MEDICINE Kidney failure: <15 mL/min/1.73m2 The estimated GFR is calculated from the IDMS-traceable Modification of Diet in Renal Disease Equation. The accuracy of the calculation is poor when the creatinine is normal. Calculated values >90 mL/min/1.73m2 are not reported. This equation has not been validated in children (<18 years), women, the elderly (>70 years), or ethnic groups other than Caucasians and Americans. Specimen Blood Performing Organization Address City/[facility]/Zipcode Phone Number [facility] DEPARTMENT OF PATHOLOGY AND [address] [place] [address] [employer] [facility] POC creatinine (06/15/2018 2:40 PM)Only the most recent of2 resultswithin the time period is included. POC creatinine 0.9 0.7 - 1.2 mg/dl [facility] DEPARTMENT OF PATHOLOGY AND Comment: [employer] [facility] Meter ID: [id number] Screed Operator: Mitchel Theodore Specimen Blood Performing Organization Address City/[facility]/Zipcode Phone Number [facility] DEPARTMENT OF PATHOLOGY AND [address] [place] [address] [facility] [address] Abdomen Pelvis W Contrast (03/16/2018 3:34 PM) Narrative Performed At EXAMINATION:CT ABDOMEN PELVIS W CONTRAST [facility] CLINICAL HISTORY:C61 Malignant neoplasm of prostate, c61 TECHNIQUE: Multiple axial images of the abdomen and pelvis were obtained before and after intravenous administration of iodinated contrast. Contrast material was also instilled into the urinary bladder via Bhatia catheter. Sagittal and coronal computerized reformatted images were also obtained. Radiation dose reduction technique was utilized. COMPARISON:March 10, 2018 IMPRESSION: Abdomen: 1. Liver contains a a few small cysts. No suspicious hepatic lesions are detected. 2.Spleen, pancreas, and adrenals are normal. 3.There are bilateral internal ureteral stents. There is moderate right hydronephrosis. There is no left hydronephrosis. No significant contrast excretion is seen from the right kidney, possibly due to occlusion of the stent. Clinical correlation and follow-up recommended. 4.No renal mass, stone, or cyst identified. 5.Upper abdominal fluid collections have resolved. There is decrease in amount of subcutaneous emphysema. 6.There is no intestinal obstruction. Pelvis: 1. There are postoperative changes related to prostatectomy. There is interval development of fluid collections anterior and posterior to the urinary bladder, without evidence of contrast within them. Findings are probably on the basis of postoperative seromas. Follow-up recommended. No evidence of anastomotic leak of contrast from the bladder. Fluid collection has maximum dimension of approximately 13 cm. It is amenable to percutaneous aspiration and drainage. 2.There is a surgically placed drain in the pelvis which does not appear to communicate with the above-described fluid collection. [facility]-[id number] Procedure Note Interface, Radiology Results Incoming - 03/16/2018 4:03 PM CDT EXAMINATION: CT ABDOMEN PELVIS W CONTRAST CLINICAL HISTORY: C61 Malignant neoplasm of prostate, c61 TECHNIQUE: Multiple axial images of the abdomen and pelvis were obtained before and after intravenous administration of iodinated contrast. Contrast material was also instilled into the urinary bladder via Bhatia catheter. Sagittal and coronal computerized reformatted images were also obtained. Radiation dose reduction technique was utilized. COMPARISON: March 10, 2018 IMPRESSION: Abdomen: 1. Liver contains a a few small cysts. No suspicious hepatic lesions are detected. 2. Spleen, pancreas, and adrenals are normal. 3. There are bilateral internal ureteral stents. There is moderate right hydronephrosis. There is no left hydronephrosis. No significant contrast excretion is seen from the right kidney, possibly due to occlusion of the stent. Clinical correlation and follow-up recommended. 4. No renal mass, stone, or cyst identified. 5. Upper abdominal fluid collections have resolved. There is decrease in amount of subcutaneous emphysema. 6. There is no intestinal obstruction. Pelvis: 1. There are postoperative changes related to prostatectomy. There is interval development of fluid collections anterior and posterior to the urinary bladder, without evidence of contrast within them. Findings are probably on the basis of postoperative seromas. Follow-up recommended. No evidence of anastomotic leak of contrast from the bladder. Fluid collection has maximum dimension of approximately 13 cm. It is amenable to percutaneous aspiration and drainage. 2. There is a surgically placed drain in the pelvis which does not appear to communicate with the above-described fluid collection. [facility]-[id number] Performing Organization Address City/State/Zipcode Phone Number [facility] [address] [place] [address] CT Abdomen Pelvis W Wo Contrast (03/10/2018 11:22 AM) Narrative Performed At EXAMINATION:CT [facility]OM[facility]ELVIS [facility]:s p prostatectomy wstents evaluate for urine leak TECHNIQUE: CT of the abdomen and pelvis was performed without contrast utilizing renal stone protocol. Subsequently, postcontrast CT of the abdomen and pelvis was obtained. Sagittal and coronal computerized reformatted images were also obtained. CT imaging was performed with iterative reconstruction techniques and/or automated exposure control to reduce radiation dose. COMPARISON:None. FINDINGS: 1.There are postoperative changes from prostatectomy. A Bhatia catheter is well-positioned in the bladder. Bilateral double-J ureteral stents are appropriately positioned. A left percutaneous drain which is looped in the right anterolateral pelvis is present. There is extensive abdominal wall gas and soft tissue gas in the imaged proximal thighs and perineum related to recent surgery. Small amounts of pneumoperitoneum and peritoneal fluid are also postoperative. 2.There is a moderate volume of simple water density fluid in the right posterior pararenal space displacing the right kidney anteriorly, measuring approximately 7.4 x 3.5 x 15.5 cm (axial image 71, sagittal image 35). The fluid is contiguous with the right ureter. This could potentially represent a urine leak from ureteral injury. There is no fluid loculation around the bladder neck/prostatectomy bed that would imply a ureteral anastomotic leak. 3.Bilateral renal parenchymal enhancement is symmetric. 4.There are small bilateral pleural effusions with dependent atelectasis. 5.The liver, spleen, pancreas, gallbladder, and adrenals are unremarkable. 6.There is no evidence of bowel obstruction or inflammation. Moderate fluid and contrast distention of multiple loops of bowel, without a discrete transition, are likely from postoperative ileus. 7.There is no significant skeletal abnormality. IMPRESSION: Right retroperitoneal posterior pararenal fluid loculation as described, potentially reflecting urine leak related to a ureteral injury. [facility]-[id number] Procedure Note Hm Interface, Radiology Results Incoming - 03/10/2018 11:38 AM CDT EXAMINATION: CT ABDOMEN PELVIS W WO CONTRAST CLINICAL HISTORY: s p prostatectomy w stents evaluate for urine leak TECHNIQUE: CT of the abdomen and pelvis was performed without contrast utilizing renal stone protocol. Subsequently, postcontrast CT of the abdomen and pelvis was obtained. Sagittal and coronal computerized reformatted images were also obtained. CT imaging was performed with iterative reconstruction techniques and/or automated exposure control to reduce radiation dose. COMPARISON: None. FINDINGS: 1. There are postoperative changes from prostatectomy. A Bhatia catheter is well-positioned in the bladder. Bilateral double-J ureteral stents are appropriately positioned. A left percutaneous drain which is looped in the right anterolateral pelvis is present. There is extensive abdominal wall gas and soft tissue gas in the imaged proximal thighs and perineum related to recent surgery. Small amounts of pneumoperitoneum and peritoneal fluid are also postoperative. 2. There is a moderate volume of simple water density fluid in the right posterior pararenal space displacing the right kidney anteriorly, measuring approximately 7.4 x 3.5 x 15.5 cm (axial image 71, sagittal image 35). The fluid is contiguous with the right ureter. This could potentially represent a urine leak from ureteral injury. There is no fluid loculation around the bladder neck/prostatectomy bed that would imply a ureteral anastomotic leak. 3. Bilateral renal parenchymal enhancement is symmetric. 4. There are small bilateral pleural effusions with dependent atelectasis. 5. The liver, spleen, pancreas, gallbladder, and adrenals are unremarkable. 6. There is no evidence of bowel obstruction or inflammation. Moderate fluid and contrast distention of multiple loops of bowel, without a discrete transition, are likely from postoperative ileus. 7. There is no significant skeletal abnormality. IMPRESSION: Right retroperitoneal posterior pararenal fluid loculation as described, potentially reflecting urine leak related to a ureteral injury. [facility]-[id number] Performing Organization Address [facility] Phone Number [employer] [address] [place] [address] XR Abdomen 1 Vw (03/09/2018 8:53 AM) Narrative Performed At Examination: [facility] Clinical history: Evaluate stent placementKUB Comparison: None Impression: 1. The visualized lung bases are clear. 2. Bilateral ureteral stents are in place, with proximal talus coiled within the expected location of the renal pelves and distal the bladder. 3. A drainage catheter extends into the pelvis. 4. Moderate bilateral subcutaneous emphysema may be postsurgical. Please correlate.. There is no evidence of bowel obstruction or perforation. 3. There is no acute osseous pathology. [facility]-[id number] Procedure Note Interface, Radiology Results Incoming - 03/09/2018 9:03 AM CDT Examination: XR ABDOMEN 1 VW Clinical history: Evaluate stent placement KUB Comparison: None Impression: 1. The visualized lung bases are clear. 2. Bilateral ureteral stents are in place, with proximal talus coiled within the expected location of the renal pelves and distal the bladder. 3. A drainage catheter extends into the pelvis. 4. Moderate bilateral subcutaneous emphysema may be postsurgical. Please correlate.. There is no evidence of bowel obstruction or perforation. 3. There is no acute osseous pathology. [facility]-[id number] Performing Organization Address [facility] Phone Number [employer] [address] [place] [address] Hemoglobin & hematocrit (03/08/2018 4:00 AM) HGB 11.2 (L) 14.0 - 18.0 g/dL [facility] DEPARTMENT OF PATHOLOGY AND GENOMIC MEDICINE HCT 33.1 (L) 41.0 - 51.0 % [facility] DEPARTMENT OF PATHOLOGY AND GENOMIC MEDICINE Specimen Blood Performing Organization Address City/[facility] Hospital[facility] Phone Number [facility] DEPARTMENT OF PATHOLOGY AND [address] [place] [phone] GENOMIC MEDICINE Surgical pathology request (03/07/2018 1:59 PM)Only the most recent of3 resultswithin the time period is included. [facility] DEPARTMENT OF PATHOLOGY AND GENOMIC MEDICINE Surgical pathology See link below for PDF Lab [facility] DEPARTMENT OF report Report PATHOLOGY AND GENOMIC MEDICINE Result status This is Supplemental Report [facility] DEPARTMENT OF to [id number] PATHOLOGY AND GENOMIC MEDICINE Performing Organization Address City/[facility] Hospital[facility] Phone Number [facility] DEPARTMENT OF PATHOLOGY AND [address] [place] [address] [facility] CBC with platelet and differential (03/07/2018 11:50 AM) WBC 18.85 (H) 4.50 - 11.00 k/uL [facility] DEPARTMENT OF PATHOLOGY AND GENOMIC MEDICINE RBC 4.01 (L) 4.40 - 6.00 m/uL [facility] DEPARTMENT OF PATHOLOGY AND GENOMIC MEDICINE HGB 12.3 (L) 14.0 - 18.0 g/dL [facility] DEPARTMENT OF PATHOLOGY AND GENOMIC MEDICINE HCT 36.6 (L) 41.0 - 51.0 % [facility] DEPARTMENT OF PATHOLOGY AND GENOMIC MEDICINE MCV 91.3 82.0 - 100.[address] [facility] DEPARTMENT OF PATHOLOGY AND GENOMIC MEDICINE MCH 30.7 27.0 - 34.[address] [facility] DEPARTMENT OF PATHOLOGY AND GENOMIC MEDICINE MCHC 33.6 31.0 - 37.0 g/dL [facility] DEPARTMENT OF PATHOLOGY AND GENOMIC MEDICINE RDW - SD 39.5 37.0 - 55.[address] [facility] DEPARTMENT OF PATHOLOGY AND GENOMIC MEDICINE MPV 10.4 8.8 - 13.[address] [facility] DEPARTMENT OF PATHOLOGY AND GENOMIC MEDICINE Platelet count 169 150 - 400 k/uL [facility] DEPARTMENT OF PATHOLOGY AND GENOMIC MEDICINE Nucleated RBC 0.00 /[address] [facility] DEPARTMENT OF PATHOLOGY AND GENOMIC MEDICINE Neutrophils 88.7 (H) 39.0 - 69.0 % [facility] DEPARTMENT OF PATHOLOGY AND GENOMIC MEDICINE Lymphocytes 5.4 (L) 25.0 - 45.0 % [facility] DEPARTMENT OF PATHOLOGY AND GENOMIC MEDICINE Monocytes 5.2 0.0 - 10.0 % [facility] DEPARTMENT OF PATHOLOGY AND GENOMIC MEDICINE Eosinophils 0.1 0.0 - 5.0 % [facility] DEPARTMENT OF PATHOLOGY AND GENOMIC MEDICINE Basophils 0.2 0.0 - 1.0 % [facility] DEPARTMENT OF PATHOLOGY AND GENOMIC MEDICINE Immature granulocytes 0.4Comment: 0.0 - 1.0 % [facility] DEPARTMENT OF "Immature PATHOLOGY AND GENOMIC granulocytes" MEDICINE (promyelocytes, myelocytes, metamyelocytes) Specimen Blood Performing Organization Address City/[facility] Hospital[facility] Phone Number [facility] DEPARTMENT OF PATHOLOGY AND [address] [place] [phone] [address] MEDICINE ECG Pre/Post Op (02/28/2018 1:32 PM) Ventricular rate 50 [facility] MUSE Atrial rate 50 [facility] [place]USE [place] interval 140 [facility] MUSE QRSD interval 92 [facility] MUSE QT interval [address] [facility] QTC interval [facility] MUSE P axis [address] [facility] MUSE QRS axis [address] [facility] M[facility] T wave axis 51 [facility] MUSE EKG impression Sinus bradycardia-Otherwise normal ECG-No [facility] MUSE previous ECGs available- Performing Organization Address [facility] Phone Number [facility] MUSE [address] [place] [phone] Urine culture (02/28/2018 1:25 PM) Urine culture SEE COMMENTComment: Bacteriuria [facility] DEPARTMENT OF PATHOLOGY screen negative. AND GENOMIC MEDICINE Performing Organization Address [facility] Hospital[facility] Phone Number [facility] DEPARTMENT OF PATHOLOGY AND [address] [place] [phone] [facility] Urinalysis screen and microscopy, with reflex to culture (02/28/2018 1:20 PM) Specimen site Clean catch [facility] DEPARTMENT OF PATHOLOGY AND GENOMIC MEDICINE Color, UA Straw [facility] DEPARTMENT OF PATHOLOGY AND GENOMIC MEDICINE Appearance, UA Clear [facility] DEPARTMENT OF PATHOLOGY AND GENOMIC MEDICINE Specific gravity, UA 1.009 1.001 - 1.035 [facility] DEPARTMENT OF PATHOLOGY AND GENOMIC MEDICINE pH, UA 7.0 5.0 - 8.5 [facility] DEPARTMENT OF PATHOLOGY AND GENOMIC MEDICINE Protein, UA Negative Negative [facility] DEPARTMENT OF PATHOLOGY AND GENOMIC MEDICINE Glucose, UA Negative Negative [facility] DEPARTMENT OF PATHOLOGY AND GENOMIC MEDICINE Ketones, UA Negative Negative [facility] DEPARTMENT OF PATHOLOGY AND GENOMIC MEDICINE Bilirubin, UA Negative Negative [facility] DEPARTMENT OF PATHOLOGY AND GENOMIC MEDICINE Blood, UA Negative Negative [facility] DEPARTMENT OF PATHOLOGY AND GENOMIC MEDICINE Nitrite, UA Negative Negative [facility] DEPARTMENT OF PATHOLOGY AND GENOMIC MEDICINE Urobilinogen, UA <2.[address] [facility] DEPARTMENT OF PATHOLOGY AND GENOMIC MEDICINE Leukocyte esterase, UA Negative Negative [facility] DEPARTMENT OF PATHOLOGY AND GENOMIC MEDICINE WBC, UA None seen 0 - 1 /HPF [facility] DEPARTMENT OF PATHOLOGY AND GENOMIC MEDICINE RBC, UA <1 0 - 5 /HPF [facility] DEPARTMENT OF PATHOLOGY AND GENOMIC MEDICINE Bacteria, UA None seen None seen [facility] DEPARTMENT OF PATHOLOGY AND GENOMIC MEDICINE Yeast, UA None seen [facility] DEPARTMENT OF PATHOLOGY AND GENOMIC MEDICINE Yeast with pseudohyphae, UA None seen [facility] DEPARTMENT OF PATHOLOGY AND GENOMIC MEDICINE Specimen Urine Performing Organization Address City/State/Zipcode Phone Number [facility] DEPARTMENT OF PATHOLOGY AND [address] [place] [phone] GENOMIC MEDICINE Type and screen (02/28/2018 1:20 PM) ABO grouping A [facility] DEPARTMENT OF PATHOLOGY AND GENOMIC MEDICINE Rh type POS [facility] DEPARTMENT OF PATHOLOGY AND GENOMIC MEDICINE Antibody screen (gel) NEG [facility] DEPARTMENT OF PATHOLOGY AND GENOMIC MEDICINE Specimen Blood Performing Organization Address City/[facility]/Zipcode Phone Number [facility] DEPARTMENT OF PATHOLOGY AND [address] [place], [place] [phone] [facility] NM Bone Scan Whole Body (02/06/2018 12:11 PM) Narrative Performed At PROCEDURE:NM BONE SCAN WHOLE BODY [facility] CLINICAL HISTORY:C61 Malignant neoplasm of prostate, c61 COMPARISON:No prior bone scans available. MRI prostate today TECHNIQUE: The patient was injected with 25 millicuries of [id number] intravenously, followed 3 hours later by whole-body scanning in the anterior and posterior projections. FINDINGS: Very mild degenerative uptake in the knees. Renal excretion is physiological. IMPRESSION: No evidence of osseous metastatic disease. [facility]-[id number] Procedure Note Interface, Radiology Results - 02/06/2018 4:12 PM CDT PROCEDURE: NM BONE SCAN WHOLE BODY CLINICAL HISTORY: C61 Malignant neoplasm of prostate, c61 COMPARISON: No prior bone scans available. MRI prostate today TECHNIQUE: The patient was injected with 25 millicuries of [id number] intravenously, followed 3 hours later by whole-body scanning in the anterior and posterior projections. FINDINGS: Very mild degenerative uptake in the knees. Renal excretion is physiological. IMPRESSION: No evidence of osseous metastatic disease. [facility]-[id number] Performing Organization Address City/State/Zipcode Phone Number [facility] [address] [place] [address] MRI Prostate Wwo Contrast (02/06/2018 10:56 AM) Narrative Performed At EXAMINATION:MRI PROSTATE WWO CONTRAST [facility] CLINICAL HISTORY:C61 Malignant neoplasm of prostate, c61 COMPARISON:None. TECHNIQUE: Using a pelvic phased array coil, multiplanar, multisequence MRI of the pelvis was performed with a prostate-specific protocol with and without contrast. Diffusion weighted images and dynamic contrast enhanced images were performed. IMPRESSION: 1. The image quality is satisfactory. 2. The prostate gland measures 5.0 x 5.0 x 3.9 cm. Calculated prostatic volume is 51 mL. The calculated PSA density is 0.14. 3. Central gland: There is moderate BPH involving the transitional zone without a significant lesion identified. 4. Peripheral zone: Mild postbiopsy hemorrhage suggested. 1.3 cm area of focal significant diffusion restriction (ADC values 743) within the right lateral peripheral zone in the mid gland (series 6, erwin ge 24 and series 500, image 8) is consistent with a PIRADS 4 lesion and highly likely to represent significant prostate cancer. No other focal areas of diffusion restriction appreciated. Generalized areas of decreased T2 signal intensity throughout the p eripheral zones more suggestive of benign changes. 5. Seminal vesicles: Normal. 6. Extracapsular extension: The lesion in the right lateral peripheral zone has greater than 1 cm of capsular contact. There is also some mild capsular bulging (series 4, image 14 and series 6, image 24 ). Both findings raise the possibility of some early extracapsular extension on the right. The right neurovascular bundle is in close proximity to this finding. 7: Bladder: Normal. 8. Lymph nodes: No suspicious lymph nodes. 9. Bones: No focal marrow replacing abnormality. 10.Other:Small amount of ascitic fluid in the pelvis. PI-RADS score: The presence of a clinically significant prostate cancer is: 4 PI-RADS score: The presence of a significant prostate cancer is: PI-RADS 1: Very low (Highly unlikely) PI-RADS 2: Low (Unlikely) PI-RADS 3: Intermediate (Equivocal) PI-RADS 4: High (Likely) PI-RADS 5: Very High (Highly likely) [facility]-[id number] Procedure Note Hm Interface, Radiology Results Incoming - 02/06/2018 12:30 PM CDT EXAMINATION: MRI PROSTATE WWO CONTRAST CLINICAL HISTORY: C61 Malignant neoplasm of prostate, c61 COMPARISON: None. TECHNIQUE: Using a pelvic phased array coil, multiplanar, multisequence MRI of the pelvis was performed with a prostate-specific protocol with and without contrast. Diffusion weighted images and dynamic contrast enhanced images were performed. IMPRESSION: 1. The image quality is satisfactory. 2. The prostate gland measures 5.0 x 5.0 x 3.9 cm. Calculated prostatic volume is 51 mL. The calculated PSA density is 0.14. 3. Central gland: There is moderate BPH involving the transitional zone without a significant lesion identified. 4. Peripheral zone: Mild postbiopsy hemorrhage suggested. 1.3 cm area of focal significant diffusion restriction (ADC values 743) within the right lateral peripheral zone in the mid gland (series 6, image 24 and series 500, image 8) is consistent with a PIRADS 4 lesion and highly likely to represent significant prostate cancer. No other focal areas of diffusion restriction appreciated. Generalized areas of decreased T2 signal intensity throughout the peripheral zones more suggestive of benign changes. 5. Seminal vesicles: Normal. 6. Extracapsular extension: The lesion in the right lateral peripheral zone has greater than 1 cm of capsular contact. There is also some mild capsular bulging (series 4, image 14 and series 6, image 24). Both findings raise the possibility of some early extracapsular extension on the right. The right neurovascular bundle is in close proximity to this finding. 7: Bladder: Normal. 8. Lymph nodes: No suspicious lymph nodes. 9. Bones: No focal marrow replacing abnormality. 10. Other: Small amount of ascitic fluid in the pelvis. PI-RADS score: The presence of a clinically significant prostate cancer is: 4 PI-RADS score: The presence of a significant prostate cancer is: PI-RADS 1: Very low (Highly unlikely) PI-RADS 2: Low (Unlikely) PI-RADS 3: Intermediate (Equivocal) PI-RADS 4: High (Likely) PI-RADS 5: Very High (Highly likely) [facility]-[id number] Performing Organization Address City/State/Zipcode Phone Number [id number] [phone] [place] [address] after 07/21/2017 Insurance Payer Benefit Plan / Group Subscriber ID Type Phone Address BCBS BCBS OUT OF STATE xxxxxxxxxxxxxxx PPO Work: [employer] . [phone] [address] Home:
[2018-07-22] MEDS ORDERED: IBUPROFEN 400 MG TAB ONE (13:40)
[2018-07-22 14:24] LABS: Absolute Lymphocytes (CBC) 0.9 K/uL (0.7-4.9); Basophils % 0.5 % (0-1.3); Eosinophils % 0.1 % (0-4.4); Lymphocytes % 9.8 % (15.3-44.8); MCH 28.5 pg (27.0-35.0); MCV 84.7 fL (80-100); MPV 8.4 fL (7.6-11.3); Monocytes % 10.8 % (3.3-12.3)
--- NOTE | 2018-07-22 14:40 | RAD REPORT ---
EXAM DESCRIPTION: RAD - Ankle Right 3 View - 07/22/2018 2:17 pm CLINICAL HISTORY: Right ankle pain FINDINGS: Bony density which lies adjacent to the medial malleolus probably is the sequela of an old fracture as soft tissue swelling is not seen. Medial joint space narrowing is present. No acute fracture or dislocation is seen
[2018-07-22 15:11] LABS: Urine Blood 1+ (NEG); Urine Glucose NEGATIVE (NEG); Urine Protein 2+ (NEG); Urine Specific Gravity 1.015 (1.005-1.030); Urine pH >8.5 (5.0-7.0)
[2018-07-22 15:12] LABS: Urine Blood TRACE (NEG); Urine Glucose NEGATIVE (NEG); Urine Protein NEGATIVE (NEG); Urine Specific Gravity 1.015 (1.005-1.030)
--- NOTE | 2018-07-22 15:30 | RAD REPORT ---
EXAM DESCRIPTION: USExtremity Venous Uni Ltd07/22/2018 3:12 pm CLINICAL HISTORY: Right leg pain and swelling. COMPARISON: None. FINDINGS: Right common femoral, superficial femoral, popliteal and right posterior tibial veins are compressible and demonstrate augmentation. Doppler demonstrates good flow. IMPRESSION: No evidence of deep venous thrombosis involving the right lower extremity.
[2018-07-22 16:06] LABS: Urine Bacteria <20 /HPF (NONE SEEN); Urine Culture Reflex Order NOT NEEDED; Urine RBC <5 /HPF (NONE SEEN)
[2018-07-22 16:07] LABS: Urine Bacteria 20-50 /HPF (NONE SEEN); Urine Culture Reflex Order NOT NEEDED; Urine RBC <5 /HPF (NONE SEEN); Urine Triple Phosphate Crystal MODERATE (NONE SEEN)
[2018-07-22] MEDS ORDERED: CEFTRIAXONE/SWI 1gm 1 GM/10 ML SYR ONE (16:43)
--- NOTE | 2018-07-22 16:46 | EDPHYS ---
Physician Documentation [facility] Name: Robbin Barcenas Age: 63 yrs Sex: Male : 1955 Arrival Date: 07/22/2018 Time: 12:29 Bed 20 Private MD: Prasanth Schilling B ED Physician Marc Velazquez HPI: 07/22 16:30 This 63 yrs old Male presents to ER via Ambulatory with complaints of Ankle rn Swelling, Fever. 16:39 This 63 yrs old Male presents to ER via Ambulatory with complaints of Ankle rn Swelling, Fever. 16:39 Reports fever, myalgias, began yesterday, no focal symptoms, no flank pain, no abd rn pain, no cough. Reports called urologist who was concerned about ankle swelling, but present for some time, but wanted to rule out DVT, called pcp who wanted to rule out urine infection. 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 . Onset: The symptoms/episode began/occurred yesterday. Severity of symptoms: At their worst the symptoms were mild in the emergency department the symptoms have improved. The patient has not experienced similar symptoms in the past. The patient has been recently seen by a physician:. Historical: - Allergies: 12:42 No Known Allergies; aa5 - PMHx: 12:42 None; aa5 - PSHx: 12:42 nephrostomy to R kidney; aa5 - Immunization history:: Flu vaccine is up to date. - Social history:: Smoking status: Patient/guardian denies using tobacco. - Ebola Screening: : No symptoms or risks identified at this time. - Family history:: not pertinent. - Hospitalizations: : Patient was recently seen at. ROS: 16:39 Constitutional: + fever and myalgias Eyes: Negative for injury, pain, redness, and nutrition internship, ENT: Negative for injury, pain, and discharge, Neck: Negative for injury, pain, and swelling, Cardiovascular: Negative for chest pain, palpitations Respiratory: Negative for shortness of breath, cough, wheezing, and pleuritic chest pain, Abdomen/GI: Negative for abdominal pain, nausea, vomiting, diarrhea, and constipation, Back: Negative for injury and pain, MS/Extremity: Negative for injury and deformity, Skin: Negative for injury, rash, and discoloration, Neuro: Negative for headache, weakness, numbness, tingling, and seizure. Exam: 16:39 Constitutional: This is a well developed, well nourished patient who is awake, alert, rn and in no acute distress. Head/Face: Normocephalic, atraumatic. Eyes: Pupils equal round and reactive to light, extra-ocular motions intact. Lids and lashes normal. Conjunctiva and sclera are non-icteric and not injected. Cornea within normal limits. Periorbital areas with no swelling, redness, or edema. ENT: no oral swelling or lesions, no stridor, MMM Neck: Trachea midline, no thyromegaly or masses palpated, and no cervical lymphadenopathy. Supple, full range of motion without nuchal rigidity Cardiovascular: Regular rate and rhythm with a normal S1 and S2. No gallops, murmurs, or rubs. Normal PMI, no JVD. No pulse deficits. Respiratory: Lungs have equal breath sounds bilaterally, clear to auscultation. No rales, rhonchi or wheezes noted. No increased work of breathing, no retractions or nasal flaring. Abdomen/GI: soft, non-tender Back: No spinal tenderness. No costovertebral tenderness. Full range of motion. Right nephrostomy tube noted without drainage/surrounding erythema, no CVAT Skin: Warm, dry with normal turgor. Normal color with no rashes, no lesions, and no evidence of cellulitis. MS/ Extremity: Pulses equal, no cyanosis. Neurovascular intact. Full, normal range of motion. Equal circumference. Mild swelling noted about right ankle without skin changes. Neuro: Awake and alert, GCS 15, oriented to person, place, time, and situation. Cranial nerves II-XII grossly intact. Motor strength 5/5 in all extremities. Sensory grossly intact. Cerebellar exam normal. Normal gait. Vital Signs: 12:42 BP 138 / 86; Pulse 83; Resp 20 S; Temp 100.3(O); Pulse Ox 97% on R/A; Weight 65.77 kg aa5 (R); Height 6 ft. 0 in. (182.88 cm) (R); Pain 5/10; 12:43 Temp 102.1(TE); aa5 14:00 BP 129 / 82; Pulse 67; Resp 18; Temp 100.3(O); Pulse Ox 97% on R/A; Pain 4/10; em 17:00 BP 123 / 83; Pulse 59; Resp 18; Temp 98.8(O); Pulse Ox 99% on R/A; em 12:42 Body Mass Index 19.67 (65.77 kg, 182.88 cm) aa5 MDM: 12:51 Patient medically screened. rn 16:39 Differential Diagnosis flu, UTI, pyelo, DVT, viral infection. Data reviewed: vital rn signs, nurses notes, lab test result(s), radiologic studies, doppler, plain films, and as a result, I will discharge patient. Counseling: I had a detailed discussion with the patient and/or guardian regarding: the historical points, exam findings, and any diagnostic results supporting the discharge/admit diagnosis, lab results, radiology results, the need for outpatient follow up, to return to the emergency department if symptoms worsen or persist or if there are any questions or concerns that arise at home. Response to treatment: the patient's symptoms have mildly improved after treatment, and as a result, I will discharge patient. ED course: NOn-toxic, mild UTI from right kidney with nephrostomy tube, normal vitals, procal neg, cultures obtained, after long discussion with patient and , will treat with rocephin here and cefpodoxime outpt, has appt with his urologist in 4 days, return precautions given and understood. . 07/22 13:10 Order name: Flu; Complete Time: 15:15 rn 07/22 13:10 Order name: CBC with Diff; Complete Time: 15:15 rn 07/22 13:10 Order name: Basic Metabolic Panel; Complete Time: 15:15 rn 07/22 13:10 Order name: Urine Culture rn 07/22 13:10 Order name: Urine Microscopic Only; Complete Time: 16:11 rn 07/22 13:10 Order name: Blood Culture Adult (2) rn 07/22 13:10 Order name: Extremity Venous Uni Ltd US; Complete Time: 15:31 rn 07/22 13:10 Order name: Procalcitonin; Complete Time: 15:15 rn 07/22 13:10 Order name: XRAY Ankle RIGHT 3 view; Complete Time: 15:15 rn 07/22 13:53 Order name: Urine Microscopic Only; Complete Time: 16:11 rn 07/22 13:53 Order name: Urine Culture rn 07/22 14:28 Order name: Urine Dipstick-Ancillary; Complete Time: 15:15 EDMS 07/22 14:30 Order name: Urine Dipstick-Ancillary; Complete Time: 15:15 EDMS 07/22 13:10 Order name: IV Start; Complete Time: 13:54 rn 07/22 13:10 Order name: Urine Dipstick-Ancillary (obtain specimen); Complete Time: 13:54 rn 07/22 13:53 Order name: Urine Dipstick-Ancillary (obtain specimen); Complete Time: 14:32 rn Administered Medications: 13:54 Drug: Motrin 800 mg Route: PO; em 14:32 Follow up: Response: No adverse reaction; Temperature is decreased em 16:46 Drug: Rocephin - (cefTRIAXone) 1 grams Route: IVPB; Infused Over: 30 mins; Site: right hb forearm; 17:01 Follow up: Response: No adverse reaction; IV Status: Completed infusion; IV Intake: 10mlem Disposition: 07/22/18 16:46 Discharged to Home. Impression: Fever, unspecified, Urinary tract infection, site not specified. - Condition is Stable. - Discharge Instructions: Fever, Adult, Urinary Tract Infection, Adult. - Prescriptions for cefpodoxime 100 mg Oral Tablet - take 2 tablet by ORAL route every 12 hours for 10 days take with food; 40 tablet. Zofran ODT 4 mg Oral tablet,disintegrating - place 1 tablet by TRANSLINGUAL route every 8 hours As needed; 20 tablet. - Medication Reconciliation Form, Thank You Letter, Antibiotic Education, Prescription Opioid Use form. - Follow up: Private Physician; When: 2 - 3 days; Reason: Recheck today's complaints, Re-evaluation by your physician. - Problem is new. - Symptoms have improved. Signatures: Dispatcher [employer] EDTX Uche Prince, EQUITY HOLDER EQUITY HOLDER em Marc Velazquez MD MD rn Calderon, Audri RN RN aa5 Julita Oro RN RN Corrections: (The following items were deleted from the chart) 17:04 16:46 07/22/2018 16:46 Discharged to Home. Impression: Fever, unspecified; Urinary em tract infection, site not specified. Condition is Stable. Forms are Medication Reconciliation Form, Thank You Letter, Antibiotic Education, Prescription Opioid Use. Follow up: Private Physician; When: 2 - 3 days; Reason: Recheck today's complaints, Re-evaluation by your physician. Problem is new. Symptoms have improved. rn
--- NOTE | 2018-07-22 16:46 | ER ---
Nurse's Notes [facility] Name: Robbin Barcenas Age: 63 yrs Sex: Male : 1955 Arrival Date: 07/22/2018 Time: 12:29 Bed 20 Private MD: Prasanth Schilling B Diagnosis: Fever, unspecified;Urinary tract infection, site not specified Presentation: 07/22 12:39 Presenting complaint: Patient states: fever up to 100.7 since yesterday. Pt reports aa5 body aches. Pt also reports swelling to right ankle x 1 week ago. Pt states "I got a nephrostomy back in February so my doctor sent me here because I have a fever and he is worried it's my nephrostomy". Denies N/V/D, denies cough. Transition of care: patient was not received from another setting of care. Onset of symptoms was July 2018. Risk Assessment: Do you want to hurt yourself or someone else? Patient reports no desire to harm self or others. Care prior to arrival: None. 12:39 Method Of Arrival: Ambulatory aa5 12:39 Acuity: MARIAH 3 aa5 13:30 Initial Sepsis Screen: Does the patient meet any 2 criteria? Temp <36.0*C (96.8*F)) or em > 38.3*C (100.4*F). Does the patient have a suspected source of infection? No. Patient's initial sepsis screen is negative. Historical: - Allergies: 12:42 No Known Allergies; aa5 - PMHx: 12:42 None; aa5 - PSHx: 12:42 nephrostomy to R kidney; aa5 - Immunization history:: Flu vaccine is up to date. - Social history:: Smoking status: Patient/guardian denies using tobacco. - Ebola Screening: : No symptoms or risks identified at this time. - Family history:: not pertinent. - Hospitalizations: : Patient was recently seen at. Screenin:30 Abuse screen: Denies threats or abuse. Nutritional screening: No deficits noted. em Tuberculosis screening: No symptoms or risk factors identified. Fall Risk None identified. Assessment: 13:05 General: Appears in no apparent distress. comfortable, Behavior is calm, cooperative. em Pain: Complains of pain in body aches. Neuro: Level of Consciousness is awake, alert, obeys commands, Oriented to person, place, time, situation. Cardiovascular: Denies chest pain, shortness of breath, Capillary refill < 3 seconds Patient's skin is warm and dry. Respiratory: Airway is patent Trachea midline Respiratory effort is even, unlabored, Respiratory pattern is regular, symmetrical. GI: Abdomen is flat, Patient currently denies nausea, vomiting. : Urine is clear, nephrostomy tube noted taped to back, clean and dry, no drainage noted, clear and yellow urine noted in bag. EENT: No signs and/or symptoms were reported regarding the EENT system. Derm: Skin is intact, Skin is pink, warm \\T\\ dry. Musculoskeletal: Range of motion: intact in all extremities. 14:00 Reassessment: Patient appears in no apparent distress at this time. Patient and/or em family updated on plan of care and expected duration. Pain level reassessed. Patient is alert, oriented x 3, equal unlabored respirations, skin warm/dry/pink. 15:11 Reassessment: I agree with previous assessment. hb 15:42 Reassessment: Patient appears in no apparent distress at this time. Patient and/or em family updated on plan of care and expected duration. Pain level reassessed. Patient is alert, oriented x 3, equal unlabored respirations, skin warm/dry/pink. provider at bedside. 16:40 Reassessment: Patient appears in no apparent distress at this time. No changes from em previously documented assessment. Patient and/or family updated on plan of care and expected duration. Pain level reassessed. Patient is alert, oriented x 3, equal unlabored respirations, skin warm/dry/pink. Patient denies pain at this time. Patient states feeling better. Vital Signs: 12:42 BP 138 / 86; Pulse 83; Resp 20 S; Temp 100.3(O); Pulse Ox 97% on R/A; Weight 65.77 kg aa5 (R); Height 6 ft. 0 in. (182.88 cm) (R); Pain 5/10; 12:43 Temp 102.1(TE); aa5 14:00 BP 129 / 82; Pulse 67; Resp 18; Temp 100.3(O); Pulse Ox 97% on R/A; Pain 4/10; em 17:00 BP 123 / 83; Pulse 59; Resp 18; Temp 98.8(O); Pulse Ox 99% on R/A; em 12:42 Body Mass Index 19.67 (65.77 kg, 182.88 cm) aa5 ED Course: 12:29 Patient arrived in ED. as 12:30 Prasanth Schilling MD is Private Physician. as 12:41 Triage completed. aa5 12:41 Arm band placed on. aa5 12:51 Marc Velazquez MD is Attending Physician. rn 12:51 Uche Prince LVN is Primary Nurse. em 13:30 Patient has correct armband on for positive identification. Bed in low position. Call em light in reach. Side rails up X2. Adult w/ patient. 13:30 No provider procedures requiring assistance completed. Initial lab(s) drawn, by me, em sent to lab. First set of blood cultures drawn by me, Urine collected: Flu and/or RSV swab sent to lab. Inserted saline lock: 20 gauge in right antecubital area, using aseptic technique. Blood collected. 14:10 X-ray completed. Portable x-ray completed in exam room. Patient tolerated procedure la2 well. 14:17 XRAY Ankle RIGHT 3 view In Process Unspecified. EDMS 15:05 Ultrasound completed. Patient tolerated well. sg3 15:12 Extremity Venous Uni Ltd US In Process Unspecified. EDMS 17:02 IV discontinued, intact, bleeding controlled, No redness/swelling at site. Pressure em dressing applied. Administered Medications: 13:54 Drug: Motrin 800 mg Route: PO; em 14:32 Follow up: Response: No adverse reaction; Temperature is decreased em 16:46 Drug: Rocephin - (cefTRIAXone) 1 grams Route: IVPB; Infused Over: 30 mins; Site: right hb forearm; 17:01 Follow up: Response: No adverse reaction; IV Status: Completed infusion; IV Intake: 10mlem Intake: 17:01 IV: 10ml; Total: 10ml. em Outcome: 16:46 Discharge ordered by . rn 17:02 Discharged to home ambulatory, with family. em 17:02 Condition: good 17:02 Discharge instructions given to patient, family, Instructed on discharge instructions, follow up and referral plans. medication usage, Demonstrated understanding of instructions, follow-up care, medications, Prescriptions given X 2. 17:04 Patient left the ED. em Addendum: 07/26/2018 15:44 Addendum: Culture Results: Positive urine culture. Bacteria is resistant to, has d m5 intermediate sensitivity, or is not tested against prescribed antibiotics. Report given to CONOR for further evaluation and then to call center receptionist for follow up with patient. 16:03 Addendum: Culture Results: No further action required. d m5 Signatures: Dispatcher [employer] Elham Martinez RN RN dm5 Uche Prince, PLANT TECHNICIAN/CONTROL ROOM OPERATOR PLANT TECHNICIAN/CONTROL ROOM OPERATOR Kenisha Salgado Roman, MD MD rn Calderon, Audri, RN RN aa5 Julita Oro RN RN Stephanie Wilhelm Sarah sg3
== END 2018-07-22 17:04 | disposition home or self-care (01) ==
LOC: ER 12:26
DX: N39.0 Urinary tract infection, site not specified (principal)
CPT/HCPCS: 36415; 80048; 81003; 81015; 84145; 85025; 87040; 87077; 87086; 87088; 87186; 87804; 93971; 96374; 99284; J0696